=== PATIENT | female | born 1985 | race Caucasian/White ===

== ENCOUNTER 2018-09-24 21:39 | Emergency (ER) | payer SELFPAY ==
[~2018-09-24] VITALS: Ht 162.6 cm; Wt 78.4 kg
[2018-09-25 02:15] VITALS: BP 123/60
== END 2018-09-25 02:21 | disposition home or self-care (01) ==
LOC: ER 21:39
DX: S46.912A Strain of unspecified muscle, fascia and tendon at shoulder and upper arm level, left arm, initial encounter (principal); S76.011A Strain of muscle, fascia and tendon of right hip, initial encounter; V49.88XA Car occupant (driver) (passenger) injured in other specified transport accidents, initial encounter; Y93.89 Activity, other specified; Y92.89 Other specified places as the place of occurrence of the external cause; Y99.8 Other external cause status
CPT/HCPCS: 99283